=== PATIENT | female | born 1940 | race Caucasian/White ===

== ENCOUNTER 2018-05-19 22:35 | Inpatient (IN) | payer MEDICARE, BC ==
[2018-05-19] MEDS ORDERED: NS 0.9% 1000 ML** 1,000 ML IV ONE (22:44)
[2018-05-19] MEDS ORDERED: Pantoprazole IV* 40 MG IV ONE (22:45)
--- NOTE | 2018-05-19 22:49 | ED ---
GI/ HPI - HPI Summary HPI Summary: Pt is a 78 y/o F presenting to the ED brought in by EMS transferred from [facility] for melena. She is a resident of [facility]. The pt presently has no specific complaints, and denies dizziness or seeing any dark stool. - History of Current Complaint Chief Complaint: EDGIBleed Time Seen by Provider: 05/19/18 22:36 Stated Complaint: RECTAL BLEED Hx Obtained From: Patient Onset/Duration: Started Hours Ago, Still Present Timing: Constant Severity: Mild Current Severity: None Pain Intensity: 0 Location of Pain: None Associated Signs and Symptoms: Positive: Black Tarry Stool Aggravating Factor(s): Nothing Alleviating Factor(s): Nothing - Allergy/Home Medications Allergies/Adverse Reactions: Allergies Allergy/AdvReac Type Severity Reaction Status Date / Time pentazocine Allergy Unknown Verified 05/19/18 22:39 Reaction Details Home Medications: Home Medications Aspirin 81 mg PO DAILY 05/19/18 [History Confirmed 05/19/18] Citalopram Hydrobromide 20 mg PO DAILY 05/19/18 [History Confirmed 05/19/18] Donepezil HCl 10 mg PO DAILY 05/19/18 [History Confirmed 05/19/18] Glucophage Xr 750 mg PO DAILY 05/19/18 [History Confirmed 05/19/18] Levothyroxine Sodium 100 mg PO DAILY 05/19/18 [History Confirmed 05/19/18] Lisinopril 5 mg PO DAILY 05/19/18 [History Confirmed 05/19/18] Rosuvastatin Calcium 20 mg PO DAILY 05/19/18 [History Confirmed 05/19/18] Tradjenta (NF) 5 mg PO DAILY 05/19/18 [History Confirmed 05/19/18] Vitamin D TAB* 2,000 i.u. PO DAILY 05/19/18 [History Confirmed 05/19/18] PMH/Surg Hx/FS Hx/Imm Hx Previously Healthy: Yes Endocrine/Hematology History: Reports: Hx Diabetes Cardiovascular History: Denies: Hx Hypertension Infectious Disease History: No Infectious Disease History: Denies: Traveled Outside the [place] in Last 30 Days - Family History Known Family History: Positive: Diabetes - thinks mother may have had diabetes, is unsure Negative: Hypertension - Social History Lives: Assisted Living Alcohol Use: None Smoking Status (MU): Never Smoked Tobacco Review of Systems Negative: Fever Positive: Other - melena Neurological: Negative - dizziness All Other Systems Reviewed And Are Negative: Yes Physical Exam - Summary Physical Exam Summary: VITAL SIGNS: Reviewed. GENERAL: Patient is a morbidly obese and pale female who is lying comfortable in the stretcher. Patient is not in any acute respiratory distress. HEAD AND FACE: No signs of trauma. No ecchymosis, hematomas or skull depressions. No sinus tenderness. EYES: PERRLA, EOMI x 2, No injected conjunctiva, no nystagmus. EARS: Hearing grossly intact. Ear canals and tympanic membranes are within normal limits. MOUTH: Oropharynx within normal limits. NECK: Supple, trachea is midline, no adenopathy, no JVD, no carotid bruit, no c- spine tenderness, neck with full ROM. CHEST: Symmetric, no tenderness at palpation LUNGS: Clear to auscultation bilaterally. No wheezing or crackles. CVS: Regular rate and rhythm, S1 and S2 present, no murmurs or gallops appreciated. ABDOMEN: Soft, non-tender. No signs of distention. No rebound no guarding, and no masses palpated. Bowel sounds are normal. EXTREMITIES: FROM in all major joints, no edema, no cyanosis or clubbing. NEURO: Alert and oriented x 3. No acute neurological deficits. Speech is normal and follows commands. SKIN: Dry and warm Triage Information Reviewed: Yes Vital Signs On Initial Exam: Initial Vitals Temp Pulse Resp BP Pulse Ox 97.9 F 97 16 98/63 99 05/19/18 22:39 05/19/18 22:39 05/19/18 22:39 05/19/18 22:39 05/19/18 22:39 Vital Signs Reviewed: Yes Diagnostics - Vital Signs Vital Signs Temp Pulse Resp BP Pulse Ox 05/19/18 22:39 97.9 F 97 16 98/63 99 - Laboratory Result Diagrams: 05/20/18 05:15 05/20/18 05:15 Lab Statement: Any lab studies that have been ordered have been reviewed, and results considered in the medical decision making process. - EKG 2249 Cardiac Rate: NL - 98bpm EKG Rhythm: Sinus Rhythm ST Segment: Non-Specific - in inferior leads Ectopy: None Summary of EKG Findings: Q-waves in inferior leads. Nonspecific ST changes in inferior leads. GIGU Course/Dx - Course Course Of Treatment: Pt is a 78 y/o F presenting to the ED brought in by EMS transferred from [facility] for melena. She presently has no specific complaints. The pt will be admitted for an upper GI bleed to Dr. Chan. - Diagnoses Provider Diagnoses: Upper GI bleed Discharge - Sign-Out/Discharge Documenting (check all that apply): Patient Departure Patient Received Moderate/Deep Sedation with Procedure: No - Discharge Plan Condition: Stable Disposition: ADMITTED TO [facility] - Billing Disposition and Condition Condition: STABLE Disposition: Admitted to [facility] - Attestation Statements Document Initiated by Irisibe: Yes Documenting Scribe: Amy Cruz Provider For Whom Pradip is Documenting (Include Credential): Elmo Morgan MD. Scribe Attestation: Amy Bowers, onesimoed for Elmo Morgan MD. on 05/20/18 at 0609. Scribe Documentation Reviewed: Yes Provider Attestation: The documentation as recorded by the Amy young accurately reflects the service I personally performed and the decisions made by Vane rodriguez MD. Status of Scribe Document: Viewed Consult Consult: [id number] - Spoke with Dr. Chan who will be the accepting physician to [facility] [facility].
[2018-05-19 23:07] LABS: ABS Basophils 0.1 10^3/ul (0-0.2); ABS Eosinophils 0 10^3/ul (0-0.6); ABS Lymphocytes 2.1 10^3/ul (1.0-4.8); ABS Monocytes 0.5 10^3/ul (0-0.8); ABS Neutrophils 9.8 10^3/ul (1.5-7.7); ABS Nucleated RBC 0 10^3/ul; Eosinophil % 0.3 %; Hematocrit 29 % (35-47); Lymphocyte % 16.4 %; Mean Corpuscular HGB Conc 34 g/dl (31-36); Mean Corpuscular Hemoglobin 31 pg (27-31); Mean Corpuscular Volume 90 fL (80-97); Mean Platelet Volume 7.4 fL (7.4-10.4); Nucleated Red Blood Cells % 0; Platelet Count 242 10^3/ul (150-450); Red Blood Count 3.28 10^6/ul (4.00-5.40); Red Cell Distribution Width 15 % (10.5-15); White Blood Count 12.6 10^3/ul (3.5-10.8)
[2018-05-19] MEDS: Pantoprazole* 80 mg IN NS 80 MG/250 ML BAG IVPB SCH (23:11)
[2018-05-19 23:16] LABS: Activated Partial Thrombo Time 23.8 seconds (26.0-36.3); INR 0.94 (0.77-1.02)
[2018-05-19 23:27] LABS: Albumin/Globulin Ratio 1.7 (1-3); BUN/Creatinine Ratio 33.7 (8-20); Calcium 9.5 mg/dL (8.6-10.3); EGFR African American 80.4 (>60); EGFR Non-African American 66.5 (>60); Globulin 2.3 g/dL (2-4); Potassium 4.9 mmol/L (3.5-5.0); Total Bilirubin 0.3 mg/dL (0.2-1.0); Total Protein 6.3 g/dL (6.4-8.9)
[2018-05-20] MEDS ORDERED: NS 0.9% 1000 ML** 1,000 ML IV ONE (00:41)
[2018-05-20 03:06] LABS: Hematocrit 26 % (35-47); Hemoglobin 8.4 g/dl (12.0-16.0)
[2018-05-20] MEDS: NS 0.9% 1000 ML** 1,000 ML IV SCH ×3 (03:13→22:33)
--- NOTE | 2018-05-20 03:18 | ADMNOTE ---
Subjective Date of Service: 05/20/18 Interval History: HISTORY AND PHYSICAL PCP: Andrew Braxton CC: GI bleed HPI: Patient is 78 year old resident of [facility], was brought to [place] ER earlier in day for abdominal pain. She had a CT of the abdomen/pelvis w/ no significant findings, and was returned to her SNF. Later in day, evening of admission, returned to ER w/ melena, maroon stools. Hematocrit was 31%, and FOBT was postitive. Provider in [place] ER contacted Dr. Mckenna, he accepted patient in transfer, for GI consult. Patient was transferred ER to ER. Patient has no memory of abdominal pain, denies pain, melena now. She has dementia and cannot give history. Family History: Findings - Father; alcoholic, Mother; unknown Social History: Findings - Homemaker, , 3 children, daughter Ya at [phone] is HCP, non-smoker, no alcohol or drug use Past Medical History: Findings - PMH: OA, h/o DVT, h/o [place] Fever , hypothyroid, lumbar spondylosis, depression, h/o rhabdomyolysis, DM2, HTN, dementia; PSH: intussuception, RT TKR, Review of Systems - Measurements Intake and Output: Intake and Output Last 24 Hours 05/17/18 05/18/18 05/19/18 05/20/18 06:59 06:59 06:59 06:59 Intake Total 1999 Balance 1999 Weight 99.79 kg Intake: IV Fluids 1999 - Review of Systems General Comments: poor historian, denies all problems, cannot meaningfully complete ROS Objective Active Medications: Home Medications See medication reconciliation sheet Vital Signs - 8 hr 05/19/18 05/19/18 05/19/18 22:38 22:39 22:41 Temperature 36.6 C Pulse Rate 95 97 97 Respiratory 13 16 15 Rate Blood Pressure 98/63 98/63 (mmHg) O2 Sat by Pulse 99 99 99 Oximetry 05/20/18 05/20/18 05/20/18 01:00 01:07 01:22 Temperature Pulse Rate 91 91 86 Respiratory 16 12 7 Rate Blood Pressure 82/55 91/56 102/56 (mmHg) O2 Sat by Pulse 95 93 92 Oximetry 05/20/18 05/20/18 02:00 02:15 Temperature 36.9 C Pulse Rate 95 92 Respiratory 16 17 Rate Blood Pressure 96/54 (mmHg) O2 Sat by Pulse 98 98 Oximetry Oxygen Devices in Use Now: None Appearance: alert, no distress Eyes: No Scleral Icterus, - - conjunctival pallor Ears/Nose/Mouth/Throat: Clear Oropharnyx Neck: NL Appearance and Movements; NL JVP Respiratory: Symmetrical Chest Expansion and Respiratory Effort, Clear to Auscultation Cardiovascular: NL Sounds; No Murmurs; No JVD Abdominal: NL Sounds; No Tenderness; No Distention Lymphatic: No Cervical Adenopathy Extremities: No Edema Skin: No Rash or Ulcers Neurological: Alert and Oriented x 3 Lines/Tubes/Other Access: Clean, Dry and Intact Peripheral IV Nutrition: - - NPO Result Diagrams: 05/20/18 05:15 05/20/18 05:15 Additional Lab and Data: Laboratory Tests 05/19/18 05/19/18 05/19/18 22:59 22:59 22:59 WBC 12.6 H RBC 3.28 L Hgb 10.0 L Hct 29 L Plt Count 242 INR (Anticoag Therapy) 0.94 APTT 23.8 L Calcium 9.5 AST 12 L ALT 9 Alkaline Phosphatase 31 L Total Protein 6.3 L Albumin 4.0 05/20/18 02:59 WBC RBC Hgb 8.4 L Hct 26 L Plt Count INR (Anticoag Therapy) APTT Calcium AST ALT Alkaline Phosphatase Total Protein Albumin Diagnostic Imaging: Abdo/Pelvis CT at [place] negative EKG Data: NSR, inferior Q waves, III, aVF, possible old IMI Assess/Plan/Problems-Billing Assessment: 78 year old woman with dementia, and GI hemorrhage, likely upper GI tract - Patient Problems (1) GI hemorrhage Current Visit: Yes Status: Acute Priority: High Code(s): K92.2 - GASTROINTESTINAL HEMORRHAGE, UNSPECIFIED SNOMED Code(s): 35333148 Comment: -differential includes gastritis, ulcer, small bowel AVM, diverticular bleed, ischemic colitis -BP running low, will give fluids to correct volume status -Follow serial H/H, may need transfusion -IV protonix initiated in ER -Dr. Mckenna to consult today. (2) Hypertension Current Visit: Yes Status: Acute Priority: Medium Code(s): I10 - ESSENTIAL (PRIMARY) HYPERTENSION SNOMED Code(s): 95293060 Comment: -BP running low due to hypovolemia -will hold all oral medications and monitor (3) Type 2 diabetes mellitus Current Visit: Yes Status: Acute Priority: Medium Comment: -holding all diabetic medications while TRANSFORMER [employer]STER) -will follow finger-stick glucose (4) DNR (do not resuscitate) Current Visit: Yes Status: Acute Priority: Medium Comment: -DNR status updated in chart from [facility]OL[facility] form (5) DVT prophylaxis Current Visit: Yes Status: Acute Priority: Low Code(s): VPB6274 - SNOMED Code(s): 982171736 Comment: -SCDs Status and Disposition: Inpatient
[2018-05-20 05:29] LABS: Hematocrit 24 % (35-47); Hemoglobin 7.9 g/dl (12.0-16.0)
[2018-05-20 05:45] LABS: BUN/Creatinine Ratio 30.1 (8-20); Calcium 8.3 mg/dL (8.6-10.3); EGFR African American 93.3 (>60); EGFR Non-African American 77.1 (>60); Potassium 4.1 mmol/L (3.5-5.0)
[2018-05-20] MEDS ORDERED: Dextrose 50% Syringe 50 ML* 25 GM/50 ML SYRINGE IV PUSH PRN (09:16)
--- NOTE | 2018-05-20 09:34 | PN ---
Subjective Date of Service: 05/20/18 Interval History: Patient is feeling well. Patient is a poor historian. Patient denies any pain or dizziness on standing. Patient denies F/C, N/V, abdominal pain, patient does not remember having any bloody bowel movements. Patient denies CP, SOB. Patient denies any recent sick contacts or changes in her medications. Family History: Findings - Father; alcoholic, Mother; unknown Social History: Findings - Homemaker, , 3 children, daughter Ya at [phone] is HCP, non-smoker, no alcohol or drug use Past Medical History: Findings - PMH: OA, h/o DVT, h/o [facility] Fever , hypothyroid, lumbar spondylosis, depression, h/o rhabdomyolysis, DM2, HTN, dementia; PSH: intussuception, RT TKR, Objective Active Medications: Dextrose (D50w Syringe 50 Ml*) 12.5 gm IV PUSH .FOR FS < 60 - SS PRN PRN Reason: FS < 60 Pantoprazole Sodium (Protonix Iv Bag*) 80 mg in 250 mls @ 25 mls/hr IVPB Q10H [facility] Last Admin: 05/19/18 23:11 Dose: 25 mls/hr Sodium Chloride (Ns 0.9% 1000 Ml) 1,000 mls @ 125 mls/hr IV PER RATE [facility] Last Admin: 05/20/18 03:13 Dose: 125 mls/hr Insulin Human Lispro (Humalog*) 0 units SUBCUT Q6HR [facility]; Protocol Vital Signs - 8 hr 05/20/18 05/20/18 05/20/18 01:37 01:53 01:58 Temperature Pulse Rate 90 95 94 Respiratory 29 23 20 Rate Blood Pressure 96/52 104/49 (mmHg) O2 Sat by Pulse 93 98 98 Oximetry 05/20/18 05/20/18 05/20/18 02:00 02:15 02:40 Temperature 98.5 F 98.4 F Pulse Rate 95 92 93 Respiratory 16 17 18 Rate Blood Pressure 96/54 119/52 (mmHg) O2 Sat by Pulse 98 98 100 Oximetry 05/20/18 05/20/18 07:27 07:55 Temperature 97.8 F Pulse Rate 84 Respiratory 16 Rate Blood Pressure 110/48 (mmHg) O2 Sat by Pulse 97 Oximetry Oxygen Devices in Use Now: None Appearance: Patient is a 78yo female who appears stated age and is sitting in the chair in NAD. Eyes: No Scleral Icterus, PERRLA Ears/Nose/Mouth/Throat: NL Teeth, Lips, Gums, Clear Oropharnyx, Mucous Membranes Moist, - - Pale Mucus Membranes. Neck: NL Appearance and Movements; NL JVP, Trachea Midline Respiratory: Symmetrical Chest Expansion and Respiratory Effort, Clear to Auscultation Cardiovascular: NL Sounds; No Murmurs; No JVD, No Edema, - - Tachycardia. Abdominal: NL Sounds; No Tenderness; No Distention, No Hepatosplenomegaly Lymphatic: No Cervical Adenopathy Extremities: No Edema, No Clubbing, Cyanosis Skin: No Rash or Ulcers, No Nodules or Sclerosis Neurological: Alert and Oriented x 3, NL Sensation, NL Muscle Strength and Tone , - - CN II-XII intact. Result Diagrams: 05/20/18 05:15 05/20/18 05:15 Additional Lab and Data: Laboratory Tests Microbiology and Other Data: Microbiology 05/20/18 04:20 Nasal Screen MRSA (PCR) - Final Nasal Mrsa Not Detected Diagnostic Imaging: Abdo/Pelvis CT at [place] negative EKG Data: NSR, inferior Q waves, III, aVF, possible old IMI Assess/Plan/Problems-Billing Assessment: 78 year old woman with a PMH for dementia, HF, History of DVT, who presents with melena and anemia likely from an upper GI bleed. - Patient Problems (1) GI hemorrhage Current Visit: Yes Status: Acute Priority: High Code(s): K92.2 - GASTROINTESTINAL HEMORRHAGE, UNSPECIFIED SNOMED Code(s): 57850874 Comment: - Likely upper GI. - BP now normotensive, non-symptomatic. Continue to monitor closely. - Follow serial H/H, may need transfusion, repeat due at 1100 - Continue IV protonix - GI to consult, NPO for possible EGD. (2) Heart failure Current Visit: Yes Status: Acute Code(s): I50.9 - HEART FAILURE, UNSPECIFIED SNOMED Code(s): 79964702 Comment: - Unknown type, appears euvolemic. - Monitor respiratory status with fluids and possible transfusions. (3) Dementia Current Visit: Yes Status: Acute Code(s): F03.90 - UNSPECIFIED DEMENTIA WITHOUT BEHAVIORAL DISTURBANCE SNOMED Code(s): 95941059 Comment: - Supportive care (4) Hypertension Current Visit: Yes Status: Acute Priority: Medium Code(s): I10 - ESSENTIAL (PRIMARY) HYPERTENSION SNOMED Code(s): 36992760 Comment: - BP Normotensive - Continue to hold oral antihypertensives (5) Type 2 diabetes mellitus Current Visit: Yes Status: Acute Priority: Medium Comment: - Holding all diabetic medications while NPO - FSBG Q6H while NPO - Low dose SSI (6) DNR (do not resuscitate) Current Visit: Yes Status: Acute Priority: Medium Comment: -DNR status updated in chart from [facility] form (7) DVT prophylaxis Current Visit: Yes Status: Acute Priority: Low Code(s): MHS3441 - SNOMED Code(s): 323728500 Comment: -SCDs setting in setting of GI bleed. - History of DVT, unknown if provoked. Status and Disposition: Inpatient, Clinical Course to determine discharge.
[2018-05-20] MEDS: Pantoprazole* 80 mg IN NS 80 MG/250 ML BAG IVPB SCH ×2 (10:41→19:30)
[2018-05-20 11:19] LABS: Hematocrit 24 % (35-47); Hemoglobin 7.8 g/dl (12.0-16.0)
[2018-05-20] MEDS: Insulin LISPRO* 1 UNITS UNIT SUBCUT SCH ×2 (12:17→18:18)
--- NOTE | 2018-05-20 14:33 | PN ---
Hospitalist Progress Note Date of Service: 05/20/18 Updated with patient and daughter. Patient has persistent facial droop, unchanged from previously. Discussed with patient's daughter who discussed with her brother who lives with patient and states that this is a chronic, unchanged issue for patient. No further workup warranted.
[2018-05-20 18:06] LABS: Hematocrit 24 % (35-47); Hemoglobin 7.9 g/dl (12.0-16.0)
[2018-05-20] MEDS ORDERED: PEG 3000 GI LAVAGE* 1 GALLON PO ONE (18:30)
--- NOTE | 2018-05-20 20:39 | CONS ---
GASTROENTEROLOGY CONSULT: DATE OF CONSULT: 05/20/18 REQUESTING PROVIDER: JAZMINE House REASON FOR CONSULT: Rectal bleeding. HISTORY OF PRESENT ILLNESS: Ms. Charles is a 78-year-old woman with a history of dementia, diabetes, hypothyroidism, hypertension, and hyperlipidemia, who is transferred from [facility] for workup of GI bleeding. Ms. Charles is pleasantly confused. She is unable to provide her medical history or details on the presenting symptom of GI bleeding. I called and spoke with her daughter, who is unable to provide much additional history either. According to the H&P, Ms. Charles was noted to have some dark stool. There is mention of melena in the admitting note. Labs on arrival were notable for white count of 12.6, hemoglobin of 10, hematocrit of 29. Her INR was normal. Comprehensive panel notable for mildly elevated BUN of 28. Subsequent labs overnight and today have demonstrated a hemoglobin that dropped to 8.4 and then has been stable at 7.9. She was noted by nursing to have 2 small amounts of dark red to bright red colored rectal output throughout the day. No melena noted. On interview, Ms. Charles states that she feels well. She denies any upper GI symptoms including heartburn, nausea, vomiting, dysphagia, or abdominal pain. She is not aware of having any rectal bleeding as she has not seen any herself. She does not think that she has had bleeding before. She takes NSAIDs only occasionally when she has pain or a headache. She denies being on a blood thinner. She does not know if she has had a colonoscopy in the past. On my later discussion with Ms. Charles's daughter, Ya also does not know if the patient has had a colonoscopy. She remembers the patient having some surgery with possible intestinal resection at some point while at [facility], although she does not remember any further details or the timing of the surgery. PAST MEDICAL HISTORY: The patient is a poor historian. Chart lists a history of: hypothyroidism, diabetes, hypertension, osteoarthritis, history of DVT, lumbar spondylosis, depression, and dementia. PAST SURGICAL HISTORY: Chart notes right knee replacement, , and intussusception. MEDICATIONS: At home, the patient has been on: 1. Aspirin 81 daily. 2. Citalopram 20 mg daily. 3. Donepezil 10 mg daily. 4. Glucophage XR 750 daily. 5. Levothyroxine 100 mcg daily. 6. Lisinopril 5 mg daily. 7. Rosuvastatin 20 mg daily. 8. Tradjenta 5 mg daily. 9. Vitamin D 2000 units daily. FAMILY HISTORY: No known GI or liver disease in the family. SOCIAL HISTORY: Daughter, Ya, is healthcare proxy. The patient has 3 children. Nonsmoker, no alcohol use or drug use. Resides at [facility]. REVIEW OF SYSTEMS: A 14-point of review of systems is negative except for the above. PHYSICAL EXAM: Vital Signs: Afebrile, heart rate 87, blood pressure 112/56, 97% on room air. General: Pleasant, obese woman, no acute distress. Confused. Knows it is May or May. Does not know year, where she is currently or where she lives. HEENT: Mucous membranes moist. Anicteric sclerae. Cardiovascular: Regular rate and rhythm. Pulm: Breathing comfortably. Abdomen: Obese, soft, nontender, nondistended. Rectal Exam: Limited as the patient had a hard time getting into position despite two person assistance. Unable to directly visualize entire perianal and anal areas. Digital rectal exam was notable for gross red blood. No melena. No large hemorrhoids noted within the limitations of the exam. Extremities: The patient is wearing SCDs. Skin: Pale, not jaundiced. DIAGNOSTIC STUDIES/LAB DATA: Labs reviewed. White count 12.6 on admission. Hemoglobin at 10, now has plateaued at 7.9. INR has been normal. Comprehensive panel notable initially for a mildly elevated BUN of 28, which is now down to 22. Imaging: According to the chart, the patient had a CT abdomen and pelvis performed at [place], which was negative. Report not available for review at time of dictation. IMPRESSION AND PLAN: Ms. Charles is a 78-year-old woman with a history of diabetes, dementia, hypothyroidism, hypertension, and hyperlipidemia, who was transferred from [facility] for work-up of rectal bleeding. The patient is a poor historian. There is some mention of melena in the chart; however, the patient is currently having bright red to dark red bleeding noted by the staff today and on my rectal exam. This bloody output in the setting of now stable blood count and hemodynamic stability argue against a brisk upper bleed. I would favor a lower gastrointestinal bleed as the source of her hematochezia and anemia. Differential for lower gastrointestinal bleeding in this patient most commonly would include diverticular bleeding, arteriovenous malformation, ischemic colitis. Mass or large polyp also considered as it is not clear she has had a colonoscopy, although a colonic neoplasm tends not to present with acute-onset bleeding of this severity. The patient's daughter reports a history of an unknown intestinal surgery, and there is a mention of intussusception in the chart. Unclear if this prior surgery could be playing a role in her current bleeding presentation (?anastomotic ulcer/bleed), although I suspect this is less likely. Hemorrhoids would not be expected to cause bleeding so significant that significant anemia develops. 1. Continue to monitor CBC every 6 to 8 hours. 2. I would recommend the patient be given 2 L of GoLYTELY prep to attempt to purge the colon of any residual blood in order to help determine if the patient is having ongoing bleeding or if the bloody output represents residual blood in the gastrointestinal tract. May could consider giving additional prep tomorrow if blood count drops or rectal bleeding in order to prep patient for colonoscopy. If the blood counts remain stable and/or blood clears with half of the colonoscopy prep, then I would recommend a discussion with the patient and her daughter about their wishes in terms of observation vs pursuing a colonoscopy. 3. No plan for EGD at this time as patient does not appear to be having melena or signs of a brisk upper GI bleed. 3. I will request that the primary team try to obtain outside records from [place] regarding any prior colonoscopy, upper endoscopy, and her prior abdominal surgery. 4. Clear diet with prep ok from GI standpoint. Thank you very much for this consult. GI will continue to follow. [id number]/[facility] #: [id number] KAMLESH
[2018-05-21 01:02] LABS: Hematocrit 24 % (35-47)
[2018-05-21] MEDS: Insulin LISPRO* 1 UNITS UNIT SUBCUT SCH ×5 (01:11→20:41)
[2018-05-21] MEDS: Acetaminophen TAB* 325 MG PO PRN (01:45)
[2018-05-21] MEDS: Levothyroxine TAB* 100 MCG TAB PO SCH (05:49)
[2018-05-21] MEDS: NS 0.9% 1000 ML** 1,000 ML IV SCH (06:28)
[2018-05-21] MEDS: Citalopram TAB* 20 MG PO SCH (08:44)
[2018-05-21] MEDS: Atorvastatin* 40 MG TAB PO SCH (08:44)
[2018-05-21] MEDS: Pantoprazole* 80 mg IN NS 80 MG/250 ML BAG IVPB SCH ×3 (09:36→21:34)
[2018-05-21 09:44] LABS: ABS Basophils 0 10^3/ul (0-0.2); ABS Eosinophils 0.2 10^3/ul (0-0.6); ABS Lymphocytes 1.7 10^3/ul (1.0-4.8); ABS Monocytes 0.4 10^3/ul (0-0.8); ABS Neutrophils 3.9 10^3/ul (1.5-7.7); ABS Nucleated RBC 0 10^3/ul; Eosinophil % 2.8 %; Hematocrit 24 % (35-47); Hemoglobin 7.8 g/dl (12.0-16.0); Lymphocyte % 26.9 %; Mean Corpuscular HGB Conc 33 g/dl (31-36); Mean Corpuscular Hemoglobin 29 pg (27-31); Mean Corpuscular Volume 91 fL (80-97); Mean Platelet Volume 7.1 fL (7.4-10.4); Nucleated Red Blood Cells % 0.1; Platelet Count 188 10^3/ul (150-450); Red Blood Count 2.63 10^6/ul (4.00-5.40); Red Cell Distribution Width 15 % (10.5-15); White Blood Count 6.2 10^3/ul (3.5-10.8)
[2018-05-21 10:02] LABS: Calcium 8.6 mg/dL (8.6-10.3); EGFR African American 90.4 (>60); EGFR Non-African American 74.7 (>60); Potassium 3.6 mmol/L (3.5-5.0)
[2018-05-21] MEDS ORDERED: fentaNYL* 50 MCG/ML 2 ML VIAL (100 MCG VIAL) ONE (14:24)
[2018-05-21] MEDS ORDERED: Midazolam* 1 MG/ML 10 ML VIAL (10 MG) ONE (14:24)
--- NOTE | 2018-05-21 15:55 | PN ---
Progress Note - Progress Note Date of Service: 05/21/18 Note: GI Brief Note EGD: No fresh or old blood to distal duodenum. Colon with Ileoscopy: Fresh and old blood throughout colon, fresher at IC valve. Cleaned extensively, NO colonic source identified. Fresh blood oozing out of TI. Intubated x15cm still with fresh blood. Recommendations: Endoscopically not reachable here. Monitor H/H q 6 hours. Keep 2 units of PRBC on hold at all times. Would monitor in ICU closely for signs of decompensation. Current hemodynamics reasonable If ongoing loss, would transfer for consideration of balloon enteroscopy (SYR/ EBENEZER) Discussed with DTR, she states she would want her mom to have surg/invasive procedures if needed in acute phase, does not wish core drier ventilation. Discussed with hospitalist and warehouse production worker. Eric Bragg DO 05/21/18 1600
--- NOTE | 2018-05-21 16:05 | PN ---
Subjective Date of Service: 05/21/18 Interval History: Patient is feeling well. Patient continued to have bloody bowel movements with her bowel prep. Patient remained hemodynamically stable. Patient denies dizziness on standing. Patient denies F/C, CP, SOB, N/V, abdominal pain, presyncope, or other pain. Patient in endoscopy had active bleeding from small bowel. Discussed with Family and they would like transfer for enteroscopy if needed and even surgery if needed. Family History: Findings - Father; alcoholic, Mother; unknown Social History: Findings - Homemaker, , 3 children, daughter Ya at [phone] is HCP, non-smoker, no alcohol or drug use Past Medical History: Findings - PMH: OA, h/o DVT, [facility] , hypothyroid, lumbar spondylosis, depression, h/o rhabdomyolysis, DM2, HTN, dementia; PSH: intussuception, RT TKR, Objective Active Medications: Acetaminophen (Tylenol Tab*) 650 mg PO Q6H PRN PRN Reason: PAIN Last Admin: 05/21/18 01:45 Dose: 650 mg Atorvastatin Calcium (Lipitor*) 40 mg PO DAILY [facility] Last Admin: 05/21/18 08:44 Dose: 40 mg Citalopram Hydrobromide (Celexa Tab*) 20 mg PO DAILY [facility] Last Admin: 05/21/18 08:44 Dose: 20 mg Dextrose (D50w Syringe 50 Ml*) 12.5 gm IV PUSH .FOR FS < 60 - SS PRN PRN Reason: FS < 60 Pantoprazole Sodium (Protonix Iv Bag*) 80 mg in 250 mls @ 25 mls/hr IVPB Q10H [facility] Last Admin: 05/21/18 09:36 Dose: 25 mls/hr Insulin Human Lispro (Humalog*) 0 units SUBCUT ACHS [facility]; Protocol Last Admin: 05/21/18 11:19 Dose: Not Given Levothyroxine Sodium (Synthroid Tab*) 100 mcg PO DAILY@0600 [facility] Last Admin: 05/21/18 05:49 Dose: 100 mcg Vital Signs - 8 hr 05/21/18 11:35 Temperature 97.5 F Pulse Rate 81 Respiratory 16 Rate Blood Pressure 145/48 (mmHg) O2 Sat by Pulse 99 Oximetry Oxygen Devices in Use Now: None Appearance: Patient is a 78yo female who appears stated age and is sitting in the bed in NAD. Eyes: No Scleral Icterus, PERRLA Ears/Nose/Mouth/Throat: NL Teeth, Lips, Gums, Clear Oropharnyx, Mucous Membranes Moist, - - Pale Oral Mucosa Neck: NL Appearance and Movements; NL JVP, Trachea Midline Respiratory: Symmetrical Chest Expansion and Respiratory Effort, Clear to Auscultation Cardiovascular: NL Sounds; No Murmurs; No JVD, RRR, No Edema Abdominal: NL Sounds; No Tenderness; No Distention, No Hepatosplenomegaly Lymphatic: No Cervical Adenopathy Extremities: No Edema, No Clubbing, Cyanosis Skin: No Rash or Ulcers, No Nodules or Sclerosis Neurological: NL Sensation, NL Muscle Strength and Tone, - - CN II-XII intact. Oriented only to self. Result Diagrams: 05/21/18 09:30 05/21/18 09:30 Additional Lab and Data: Laboratory Tests Microbiology and Other Data: Microbiology 05/20/18 04:20 Nasal Screen MRSA (PCR) - Final Nasal Mrsa Not Detected Diagnostic Imaging: Abdo/Pelvis CT at [place] negative EKG Data: NSR, inferior Q waves, III, aVF, possible old IMI Assess/Plan/Problems-Billing Assessment: 78 year old woman with a PMH for dementia, HF, History of DVT, who presents with melena and anemia likely from an upper GI bleed. - Patient Problems (1) GI hemorrhage Current Visit: Yes Status: Acute Priority: High Code(s): K92.2 - GASTROINTESTINAL HEMORRHAGE, UNSPECIFIED SNOMED Code(s): 58419960 Comment: - EGD and Colonoscopy negative with active bleeding. Likeyl small bowel source. - BP now normotensive, non-symptomatic. Continue to monitor closely in ICU, may need to be transferred for enteroscopy if H/H deteriorates. - Follow serial H/H Q6H - Continue IV protonix - Appreciate GI consult. (2) Heart failure Current Visit: Yes Status: Acute Code(s): I50.9 - HEART FAILURE, UNSPECIFIED SNOMED Code(s): 39604387 Comment: - Unknown type, appears slightly volume overloaded - Monitor respiratory status with fluids and possible transfusions. - Judicious use of fluids. (3) Dementia Current Visit: Yes Status: Acute Code(s): F03.90 - UNSPECIFIED DEMENTIA WITHOUT BEHAVIORAL DISTURBANCE SNOMED Code(s): 87415334 Comment: - Supportive care (4) Hypertension Current Visit: Yes Status: Acute Priority: Medium Code(s): I10 - ESSENTIAL (PRIMARY) HYPERTENSION SNOMED Code(s): 88188857 Comment: - BP Normotensive - Continue to hold oral antihypertensives (5) Type 2 diabetes mellitus Current Visit: Yes Status: Acute Priority: Medium Comment: - FSBG ACHS - Low dose SSI - Hold Oral Antihyperglycemics. (6) DNR (do not resuscitate) Current Visit: Yes Status: Acute Priority: Medium Comment: -DNR status updated in chart from MOLST form (7) DVT prophylaxis Current Visit: Yes Status: Acute Priority: Low Code(s): THC8704 - SNOMED Code(s): 230353626 Comment: -SCDs setting in setting of GI bleed. - History of DVT, unknown if provoked. Status and Disposition: Inpatient, Clinical Course to determine discharge. Possible need for transfer.
[2018-05-21 16:16] LABS: Hematocrit 23 % (35-47); Hemoglobin 7.7 g/dl (12.0-16.0)
--- NOTE | 2018-05-21 21:00 | PRO ---
CC: Dr. Amaury Chan; Dr. Andrew Braxton * ESOPHAGOGASTRODUODENOSCOPY AND COLONOSCOPY WITH ILEOSCOPY REPORT: DATE OF PROCEDURE: 05/21/18 - ROOM #434 PRIMARY CARE PHYSICIAN: Dr. Andrew Braxton. INDICATION FOR PROCEDURE: Acute blood loss anemia. PROCEDURE PERFORMED: Complete colonoscopy to the terminal ileum with ileoscopy x15 cm and complete esophagogastroduodenoscopy with biopsies. MEDICATIONS GIVEN: Include 8 mg IV midazolam, 50 mcg IV fentanyl. DESCRIPTION OF PROCEDURE: After the EGD and flexible sigmoidoscopy procedure were explained to the patient in detail and to the daughter, written informed consent was obtained from the daughter secondary to dementia. All questions were answered and IV medication was given. A bite-block was placed between the teeth. The adult Olympus gastroscope was inserted into the patient's oropharynx , into the tubular esophagus. The lower esophageal sphincter had minimal GE junction variability. No fresh or old blood. No evidence of a Shreya-Oates tear or active ulceration. The scope was advanced through the lower esophageal sphincter into the stomach. No fresh or old blood visualized on retroflexion, a small hiatal hernia, but no gross Zach erosions. The scope was advanced through the widely patent pylorus into the duodenal bulb, C-loop and distal duodenum. These were normal in appearance without any fresh or old blood or ulceration. The scope was then removed from the patient. She was given additional IV sedation medication and a rectal exam was performed. The rectal exam revealed fresh blood. The adult Olympus colonoscope was then inserted into the patient's rectum. Fresh blood and old blood was seen. The area was irrigated through the sigmoid colon. Fresh blood was visualized beyond this. The decision was made to convert to colonoscopy at this point under emergency __ ____ consent given the active bleeding. The scope was then continued through the remainder of the colon to the cecum. The cecum had extensive clots with fresh blood. This was extensively irrigated and suctioned. At the conclusion, no active bleeding was seen within the cecum or the ascending colon; however, active blood was seen refluxing through the terminal ileal valve. The TI valve was a little bit retrograde and difficult to intubate; however, with multiple position changes and nursing assistance, I was able to intubate the terminal ileum x15 cm. Fresh blood was visualized throughout and fresh blood was seen beyond where I could reach with the scope. The scope was then removed from the patient. She tolerated the procedure well. In addition, in the rectum, 2 polyps were visualized. These were not removed secondary to her active blood loss. The preparation was fair with good views obtained after washing. There was mild elias diverticulosis coli throughout the colon. IMPRESSION: 1. Complete esophagogastroduodenoscopy with biopsies. 2. No fresh or old blood seen on upper endoscopy exam. No etiology of anemia on upper endoscopy. 3. Complete colonoscopy to the terminal ileum with ileoscopy x15 cm. 4. Likely small bowel source of bleeding. 5. Mild diverticulosis coli throughout colon. 6. Two rectal polyps not removed secondary to after blood loss. RECOMMENDATIONS: At this point, it appears that the patient has a small bowel source of bleeding. I was able to intubate into the terminal ileum but fresh blood was still able to be visualized beyond that. Her hemodynamics are stable at this point without tachycardia or hypotension. Given the small bowel source of bleed, if feasible, I recommend ICU monitoring for the next 24 hours to monitor for early signs of decompensation given that I cannot reach this area with the scope. If there is evidence of ongoing blood loss and clinical deterioration, would recommend transfer for a possible small bowel enteroscopy retrograde or antegrade depending on expertise, balloon assistance versus surgical approach. We will monitor the H and H every 6 hours. Keep 2 units of PRBCs on hold. I did discuss the findings with the daughter who is the healthcare proxy. The daughter's name is Ya and she wishes for her mom to have potentially surgery or even consideration for invasive procedures; however, would not want long-term ventilation and long-term morbidity. I discussed the case with JAZMINE House the hospitalist and the health logging supervisor. [id number]/[facility] #: [id number] KAMLESH
[2018-05-21 21:15] LABS: Hematocrit 24 % (35-47); Hemoglobin 7.7 g/dl (12.0-16.0)
[2018-05-22] MEDS: Levothyroxine TAB* 100 MCG TAB PO SCH (05:57)
[2018-05-22 07:33] LABS: Calcium 8.5 mg/dL (8.6-10.3); Magnesium 1.6 mg/dL (1.9-2.7); Potassium 3.8 mmol/L (3.5-5.0)
[2018-05-22 07:39] LABS: BUN/Creatinine Ratio 9.3 (8-20); EGFR African American 90.4 (>60); EGFR Non-African American 74.7 (>60)
[2018-05-22] MEDS: Insulin LISPRO* 1 UNITS UNIT SUBCUT SCH ×4 (08:34→21:25)
[2018-05-22] MEDS: Atorvastatin* 40 MG TAB PO SCH (08:55)
[2018-05-22] MEDS: Citalopram TAB* 20 MG PO SCH (08:55)
[2018-05-22] MEDS: Pantoprazole* 80 mg IN NS 80 MG/250 ML BAG IVPB SCH ×3 (08:55→20:01)
[2018-05-22] MEDS ORDERED: Calcium Gluconate INJ* 1 GM in NS 0.9% 50 ML* 50 ML IVPB ONE (09:10)
[2018-05-22] MEDS ORDERED: Magnesium Sulf 4 GM/100 ML IV* 4,000 MG/100 ML BAG IVPB ONE (09:10)
[2018-05-22 10:40] LABS: ABS Basophils 0.1 10^3/ul (0-0.2); ABS Eosinophils 0.1 10^3/ul (0-0.6); ABS Lymphocytes 1.7 10^3/ul (1.0-4.8); ABS Monocytes 0.5 10^3/ul (0-0.8); ABS Neutrophils 7.6 10^3/ul (1.5-7.7); ABS Nucleated RBC 0 10^3/ul; Eosinophil % 0.7 %; Hematocrit 24 % (35-47); Hemoglobin 8.3 g/dl (12.0-16.0); Lymphocyte % 16.9 %; Mean Corpuscular HGB Conc 34 g/dl (31-36); Mean Corpuscular Hemoglobin 31 pg (27-31); Mean Corpuscular Volume 90 fL (80-97); Mean Platelet Volume 7.7 fL (7.4-10.4); Nucleated Red Blood Cells % 0.2; Platelet Count 224 10^3/ul (150-450); Red Cell Distribution Width 15 % (10.5-15); White Blood Count 9.9 10^3/ul (3.5-10.8)
--- NOTE | 2018-05-22 14:04 | PN ---
Subjective Date of Service: 05/22/18 Interval History: Pt seen and examined. Reported to still have bloody stools last night. D/W Mr. Jessica who mentioned pt also got transfused w/2 units PRBC. Meds and labs reviewed. CC: N/A ROS: Unable to obtain reliable 14-point ROS given pts poor memory/dementia PHYSICAL EXAM: GEN APPEARANCE: Awake, not in acute distress, oriented to person only HEENT: NC/AT, PERRLA, moist oral mucosa, (-) throat erythema NECK: Soft, supple, (-) cervical LAD, (-)JVD HEART: S1S2 WNL, RRR, No MRG CHEST: CTA, BL, GAE, No W/R/R ABD: Soft, ND/NT, NABS 4x Q EXT: No C/C/E SKIN: Warm to touch PSYCH: No active psychosis, hallucinations, depression, SI/HI Family History: Findings - Father; alcoholic, Mother; unknown Social History: Findings - Homemaker, , 3 children, daughter Ya at [phone] is HCP, non-smoker, no alcohol or drug use Past Medical History: Findings - PMH: OA, h/o DVT, h/o [facility] Fever , hypothyroid, lumbar spondylosis, depression, h/o rhabdomyolysis, DM2, HTN, dementia; PSH: intussuception, RT TKR, Objective Active Medications: Acetaminophen (Tylenol Tab*) 650 mg PO Q6H PRN PRN Reason: PAIN Last Admin: 05/21/18 01:45 Dose: 650 mg Atorvastatin Calcium (Lipitor*) 40 mg PO DAILY [facility] Last Admin: 05/22/18 08:55 Dose: 40 mg Citalopram Hydrobromide (Celexa Tab*) 20 mg PO DAILY [facility] Last Admin: 05/22/18 08:55 Dose: 20 mg Dextrose (D50w Syringe 50 Ml*) 12.5 gm IV PUSH .FOR FS < 60 - SS PRN PRN Reason: FS < 60 Pantoprazole Sodium (Protonix Iv Bag*) 80 mg in 250 mls @ 25 mls/hr IVPB Q10H [facility] Last Admin: 05/22/18 08:55 Dose: 25 mls/hr Insulin Human Lispro (Humalog*) 0 units SUBCUT ACHS [facility]; Protocol Last Admin: 05/22/18 11:42 Dose: 1 unit Levothyroxine Sodium (Synthroid Tab*) 100 mcg PO DAILY@0600 [facility] Last Admin: 05/22/18 05:57 Dose: 100 mcg Vital Signs - 8 hr 05/22/18 05/22/18 05/22/18 07:01 07:30 11:18 Temperature 97.4 F 98.4 F Pulse Rate 101 101 Respiratory 18 18 16 Rate Blood Pressure 122/53 106/55 (mmHg) O2 Sat by Pulse 98 100 Oximetry Oxygen Devices in Use Now: None Result Diagrams: 05/22/18 10:19 05/22/18 06:41 Additional Lab and Data: Laboratory Tests Microbiology and Other Data: Microbiology 05/20/18 04:20 Nasal Screen MRSA (PCR) - Final Nasal Mrsa Not Detected Diagnostic Imaging: Abdo/Pelvis CT at [place] negative EKG Data: NSR, inferior Q waves, III, aVF, possible old IMI Assess/Plan/Problems-Billing Assessment: 78 year old woman with a PMH for dementia, HF, History of DVT, who presents with melena and anemia likely from an upper GI bleed. - Patient Problems (1) GI bleed Current Visit: Yes Status: Acute Code(s): K92.2 - GASTROINTESTINAL HEMORRHAGE, UNSPECIFIED SNOMED Code(s): 75609039 Comment: -Pt has anti-D; in anticipation of obtaining compatible blood, will hold order for 2 more units, not to be given until repeat H&H and/or clinical suggestive of continuic bleed - EGD and Colonoscopy negative with active bleeding. Likeyl small bowel source. - BP now normotensive, non-symptomatic. Continue to monitor closely in ICU, may need to be transferred for enteroscopy if H/H deteriorates. - Follow serial H/H Q6H x2---repeat at 1900 - Continue IV protonix - Appreciate GI consult. (2) Heart failure Current Visit: Yes Status: Acute Code(s): I50.9 - HEART FAILURE, UNSPECIFIED SNOMED Code(s): 23132691 Comment: - Monitor respiratory status with fluids and possible transfusions. - Judicious use of fluids. (3) Dementia Current Visit: Yes Status: Acute Code(s): F03.90 - UNSPECIFIED DEMENTIA WITHOUT BEHAVIORAL DISTURBANCE SNOMED Code(s): 38708606 Comment: - Supportive care (4) Hypertension Current Visit: Yes Status: Acute Priority: Medium Code(s): I10 - ESSENTIAL (PRIMARY) HYPERTENSION SNOMED Code(s): 10196700 Comment: - BP Normotensive - Continue to hold oral antihypertensives (5) Type 2 diabetes mellitus Current Visit: Yes Status: Acute Priority: Medium Comment: -Well-controlled - FSBG ACHS - Low dose SSI - Hold Oral Antihyperglycemics. (6) DVT prophylaxis Current Visit: Yes Status: Acute Priority: Low Code(s): AJU4655 - SNOMED Code(s): 854260901 Comment: -SCDs setting in setting of GI bleed. - History of DVT, unknown if provoked. Status and Disposition: -Continue to observe tonight; consider possible transfer in AM if continues to bleed
[2018-05-22 14:36] LABS: Hematocrit 25 % (35-47); Hemoglobin 8.3 g/dl (12.0-16.0)
[2018-05-22 19:55] LABS: ABS Basophils 0.1 10^3/ul (0-0.2); ABS Eosinophils 0.1 10^3/ul (0-0.6); ABS Lymphocytes 2.2 10^3/ul (1.0-4.8); ABS Monocytes 0.5 10^3/ul (0-0.8); ABS Neutrophils 4.6 10^3/ul (1.5-7.7); ABS Nucleated RBC 0 10^3/ul; Eosinophil % 1.6 %; Hematocrit 22 % (35-47); Hemoglobin 7.4 g/dl (12.0-16.0); Lymphocyte % 29.9 %; Mean Corpuscular HGB Conc 34 g/dl (31-36); Mean Corpuscular Hemoglobin 31 pg (27-31); Mean Corpuscular Volume 91 fL (80-97); Mean Platelet Volume 7.1 fL (7.4-10.4); Nucleated Red Blood Cells % 0.1; Platelet Count 197 10^3/ul (150-450); Red Cell Distribution Width 15 % (10.5-15); White Blood Count 7.5 10^3/ul (3.5-10.8)
[2018-05-23 00:33] LABS: Hematocrit 22 % (35-47); Hemoglobin 7.5 g/dl (12.0-16.0)
[2018-05-23] MEDS: Levothyroxine TAB* 100 MCG TAB PO SCH (05:43)
[2018-05-23] MEDS: Pantoprazole* 80 mg IN NS 80 MG/250 ML BAG IVPB SCH ×2 (05:44→16:40)
[2018-05-23 06:20] LABS: ABS Basophils 0 10^3/ul (0-0.2); ABS Eosinophils 0.2 10^3/ul (0-0.6); ABS Monocytes 0.5 10^3/ul (0-0.8); ABS Neutrophils 4.1 10^3/ul (1.5-7.7); ABS Nucleated RBC 0 10^3/ul; Eosinophil % 2.3 %; Hematocrit 23 % (35-47); Hemoglobin 7.7 g/dl (12.0-16.0); Lymphocyte % 29.4 %; Mean Corpuscular HGB Conc 34 g/dl (31-36); Mean Corpuscular Hemoglobin 31 pg (27-31); Mean Corpuscular Volume 91 fL (80-97); Mean Platelet Volume 7.3 fL (7.4-10.4); Nucleated Red Blood Cells % 0.2; Platelet Count 209 10^3/ul (150-450); Red Blood Count 2.48 10^6/ul (4.00-5.40); Red Cell Distribution Width 15 % (10.5-15); White Blood Count 6.8 10^3/ul (3.5-10.8)
[2018-05-23 06:32] LABS: Albumin 3.5 g/dL (3.2-5.2); Albumin/Globulin Ratio 1.8 (1-3); BUN/Creatinine Ratio 8.4 (8-20); Calcium 8.3 mg/dL (8.6-10.3); EGFR African American 80.4 (>60); EGFR Non-African American 66.5 (>60); Globulin 1.9 g/dL (2-4); Magnesium 2.2 mg/dL (1.9-2.7); Phosphorus 2.9 mg/dL (2.5-5.0); Potassium 3.6 mmol/L (3.5-5.0); Total Bilirubin 0.3 mg/dL (0.2-1.0); Total Protein 5.4 g/dL (6.4-8.9)
[2018-05-23] MEDS: Insulin LISPRO* 1 UNITS UNIT SUBCUT SCH ×4 (07:44→20:47)
[2018-05-23] MEDS: Atorvastatin* 40 MG TAB PO SCH (09:18)
[2018-05-23] MEDS: Citalopram TAB* 20 MG PO SCH (09:18)
[2018-05-23] MEDS ORDERED: Furosemide IV* 10 MG/ML 2 ML VIAL (20 MG) IV ONE (11:55)
--- NOTE | 2018-05-23 17:04 | PN ---
Subjective Date of Service: 05/23/18 Interval History: Pt seen and examined. Meds and labs reviewed. CC: N/A ROS: Denied DUKE/dizziness, F/C, N/V, CP, SOB, increased cough, sputum production , abd pain, diarrhea, constipation, dysuria, myalgias, arthralgias, throat pain , and new skin lesions. The rest of the 14 point ROS are unremarkable. PHYSICAL EXAM: GEN APPEARANCE: Awake, not in acute distress, oriented to person only HEENT: NC/AT, PERRLA, moist oral mucosa, (-) throat erythema NECK: Soft, supple, (-) cervical LAD, (-)JVD HEART: S1S2 WNL, RRR, No MRG CHEST: CTA, BL, GAE, No W/R/R ABD: Soft, ND/NT, NABS 4x Q EXT: No C/C/E SKIN: Warm to touch PSYCH: No active psychosis, hallucinations, depression, SI/HI Family History: Findings - Father; alcoholic, Mother; unknown Social History: Findings - Homemaker, , 3 children, daughter Ya at [phone] is HCP, non-smoker, no alcohol or drug use Past Medical History: Findings - PMH: OA, h/o DVT, h/o [place] Fever , hypothyroid, lumbar spondylosis, depression, h/o rhabdomyolysis, DM2, HTN, dementia; PSH: intussuception, RT TKR, Objective Active Medications: Acetaminophen (Tylenol Tab*) 650 mg PO Q6H PRN PRN Reason: PAIN Last Admin: 05/21/18 01:45 Dose: 650 mg Atorvastatin Calcium (Lipitor*) 40 mg PO DAILY [facility] Last Admin: 05/23/18 09:18 Dose: 40 mg Citalopram Hydrobromide (Celexa Tab*) 20 mg PO DAILY [facility] Last Admin: 05/23/18 09:18 Dose: 20 mg Dextrose (D50w Syringe 50 Ml*) 12.5 gm IV PUSH .FOR FS < 60 - SS PRN PRN Reason: FS < 60 Pantoprazole Sodium (Protonix Iv Bag*) 80 mg in 250 mls @ 25 mls/hr IVPB Q10H [facility] Last Admin: 05/23/18 16:40 Dose: 25 mls/hr Insulin Human Lispro (Humalog*) 0 units SUBCUT ACHS [facility]; Protocol Last Admin: 05/23/18 15:52 Dose: 1 unit Levothyroxine Sodium (Synthroid Tab*) 100 mcg PO DAILY@0600 [facility] Last Admin: 05/23/18 05:43 Dose: 100 mcg Vital Signs - 8 hr 05/23/18 05/23/18 11:40 15:23 Temperature 97.8 F 98.3 F Pulse Rate 78 79 Respiratory 18 16 Rate Blood Pressure 115/50 104/47 (mmHg) O2 Sat by Pulse 98 100 Oximetry Oxygen Devices in Use Now: None Result Diagrams: 05/23/18 05:25 05/23/18 05:25 Additional Lab and Data: Laboratory Tests Microbiology and Other Data: Microbiology 05/20/18 04:20 Nasal Screen MRSA (PCR) - Final Nasal Mrsa Not Detected Diagnostic Imaging: Abdo/Pelvis CT at [place] negative EKG Data: NSR, inferior Q waves, III, aVF, possible old IMI Assess/Plan/Problems-Billing Assessment: 78 year old woman with a PMH for dementia, HF, History of DVT, who presents with melena and anemia likely from an upper GI bleed. - Patient Problems (1) GI bleed Current Visit: Yes Status: Acute Code(s): K92.2 - GASTROINTESTINAL HEMORRHAGE, UNSPECIFIED SNOMED Code(s): 33327674 Comment: -Given unknown source of GIB, w/c is likely intermittent, possibly AVM of small bowel along w/pts comorbidities, will transfuse 1 unit of PRBC tonight and will continue to follow - EGD and Colonoscopy negative with active bleeding. Likeyl small bowel source. - BP now normotensive, non-symptomatic. Continue to monitor closely in ICU, may need to be transferred for enteroscopy if H/H deteriorates. - Continue IV protonix gtt; and if H&H remains stable, consiver IV BID - Appreciate GI consult. (2) Heart failure Current Visit: Yes Status: Acute Code(s): I50.9 - HEART FAILURE, UNSPECIFIED SNOMED Code(s): 29067346 Comment: -Likely iatrogenic from fluid resucitation -Appears euvolemic at this time, however, will give low dose IV Lasix post 1 unit transfusion today - Monitor respiratory status with fluids and possible transfusions. - Judicious use of fluids. (3) Dementia Current Visit: Yes Status: Acute Code(s): F03.90 - UNSPECIFIED DEMENTIA WITHOUT BEHAVIORAL DISTURBANCE SNOMED Code(s): 83142433 Comment: - Supportive care (4) Hypertension Current Visit: Yes Status: Acute Priority: Medium Code(s): I10 - ESSENTIAL (PRIMARY) HYPERTENSION SNOMED Code(s): 86236732 Comment: - BP Normotensive - Continue to hold oral antihypertensives (5) Type 2 diabetes mellitus Current Visit: Yes Status: Acute Priority: Medium Comment: -Well-controlled - FSBG ACHS - Low dose SSI - Hold Oral Antihyperglycemics. (6) DVT prophylaxis Current Visit: Yes Status: Acute Priority: Low Code(s): ILM5717 - SNOMED Code(s): 201152320 Comment: -SCDs setting in setting of GI bleed. - History of DVT, unknown if provoked. Status and Disposition: -For possible D/C back to [facility] in two days -For PT eval
[2018-05-23] MEDS: Acetaminophen TAB* 325 MG PO PRN (20:53)
[2018-05-24] MEDS: Pantoprazole* 80 mg IN NS 80 MG/250 ML BAG IVPB SCH ×2 (01:40→13:11)
[2018-05-24] MEDS: Levothyroxine TAB* 100 MCG TAB PO SCH (05:48)
[2018-05-24 06:11] LABS: ABS Basophils 0.1 10^3/ul (0-0.2); ABS Eosinophils 0.1 10^3/ul (0-0.6); ABS Monocytes 0.4 10^3/ul (0-0.8); ABS Nucleated RBC 0 10^3/ul; Eosinophil % 2.2 %; Hematocrit 24 % (35-47); Hemoglobin 8.2 g/dl (12.0-16.0); Lymphocyte % 29.9 %; Mean Corpuscular HGB Conc 34 g/dl (31-36); Mean Corpuscular Hemoglobin 31 pg (27-31); Mean Corpuscular Volume 90 fL (80-97); Mean Platelet Volume 6.8 fL (7.4-10.4); Nucleated Red Blood Cells % 0.2; Platelet Count 216 10^3/ul (150-450); Red Blood Count 2.69 10^6/ul (4.00-5.40); Red Cell Distribution Width 16 % (10.5-15); White Blood Count 6.7 10^3/ul (3.5-10.8)
[2018-05-24 06:27] LABS: BUN/Creatinine Ratio 8.2 (8-20); Calcium 8.2 mg/dL (8.6-10.3); EGFR African American 78.3 (>60); EGFR Non-African American 64.7 (>60); Potassium 3.4 mmol/L (3.5-5.0)
[2018-05-24] MEDS: Insulin LISPRO* 1 UNITS UNIT SUBCUT SCH ×4 (06:49→20:49)
[2018-05-24] MEDS ORDERED: Potassium Chlor TAB* 20 MEQ TAB.ER PO ONE (09:49)
[2018-05-24] MEDS: Citalopram TAB* 20 MG PO SCH (10:04)
[2018-05-24] MEDS: Atorvastatin* 40 MG TAB PO SCH (10:04)
--- NOTE | 2018-05-24 19:30 | PN ---
Subjective Date of Service: 05/24/18 Interval History: Pt seen and examined. Meds and labs reviewed. Had BRBPR with dark brown stools this AM. Spoke w/pts daughter and Dr. Shukla. Please see discussion below. CC: N/A ROS: Denied DUKE/dizziness, F/C, N/V, CP, SOB, increased cough, sputum production , abd pain, diarrhea, constipation, dysuria, myalgias, arthralgias, throat pain , and new skin lesions. The rest of the 14 point ROS are unremarkable. PHYSICAL EXAM: GEN APPEARANCE: Awake, not in acute distress, oriented to person only HEENT: NC/AT, PERRLA, moist oral mucosa, (-) throat erythema NECK: Soft, supple, (-) cervical LAD, (-)JVD HEART: S1S2 WNL, RRR, No MRG CHEST: CTA, BL, GAE, No W/R/R ABD: Soft, ND/NT, NABS 4x Q EXT: No C/C/E SKIN: Warm to touch PSYCH: No active psychosis, hallucinations, depression, SI/HI Family History: Findings - Father; alcoholic, Mother; unknown Social History: Findings - Homemaker, , 3 children, daughter Ya at [phone] is HCP, non-smoker, no alcohol or drug use Past Medical History: Findings - PMH: OA, h/o DVT, h/o [place] Fever , hypothyroid, lumbar spondylosis, depression, h/o rhabdomyolysis, DM2, HTN, dementia; PSH: intussuception, RT TKR, Objective Active Medications: Acetaminophen (Tylenol Tab*) 650 mg PO Q6H PRN PRN Reason: PAIN Last Admin: 05/23/18 20:53 Dose: 650 mg Atorvastatin Calcium (Lipitor*) 40 mg PO DAILY [facility] Last Admin: 05/24/18 10:04 Dose: 40 mg Citalopram Hydrobromide (Celexa Tab*) 20 mg PO DAILY [facility] Last Admin: 05/24/18 10:04 Dose: 20 mg Dextrose (D50w Syringe 50 Ml*) 12.5 gm IV PUSH .FOR FS < 60 - SS PRN PRN Reason: FS < 60 Pantoprazole Sodium (Protonix Iv Bag*) 80 mg in 250 mls @ 25 mls/hr IVPB Q10H [facility] Last Admin: 05/24/18 13:11 Dose: 25 mls/hr Insulin Human Lispro (Humalog*) 0 units SUBCUT ACHS [facility]; Protocol Last Admin: 05/24/18 17:53 Dose: 1 unit Levothyroxine Sodium (Synthroid Tab*) 100 mcg PO DAILY@0600 [facility] Last Admin: 05/24/18 05:48 Dose: 100 mcg Vital Signs - 8 hr 05/24/18 15:25 Temperature 97.2 F Pulse Rate 93 Respiratory 16 Rate Blood Pressure 127/67 (mmHg) O2 Sat by Pulse 99 Oximetry Oxygen Devices in Use Now: None Result Diagrams: 05/24/18 05:59 05/24/18 05:58 Additional Lab and Data: Laboratory Tests Microbiology and Other Data: Microbiology 05/20/18 04:20 Nasal Screen MRSA (PCR) - Final Nasal Mrsa Not Detected Diagnostic Imaging: Abdo/Pelvis CT at [place] negative EKG Data: NSR, inferior Q waves, III, aVF, possible old IMI Assess/Plan/Problems-Billing Assessment: 78 year old woman with a PMH for dementia, HF, History of DVT, who presents with melena and anemia likely from an upper GI bleed. 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 Salinas if pt to be transferred since she re-bled as was the original recommendation by Dr. Bragg; per Dr. Shukla, keep pt and monitor H&H and transfuse PRN - EGD and Colonoscopy negative with active bleeding. Likeyl small bowel source. - BP now normotensive, non-symptomatic. Continue to monitor closely in ICU, may need to be transferred for enteroscopy if H/H deteriorates. - Continue IV protonix gtt; and if H&H remains stable, consiver IV BID - Will await further input from Dr. Shukla (2) Heart failure Current Visit: Yes Status: Acute Code(s): I50.9 - HEART FAILURE, UNSPECIFIED SNOMED Code(s): 06409752 Comment: -Likely iatrogenic from fluid resuscitation; resolved - Monitor respiratory status with fluids and possible transfusions. - Judicious use of fluids. -2D echo pending (3) Dementia Current Visit: Yes Status: Acute Code(s): F03.90 - UNSPECIFIED DEMENTIA WITHOUT BEHAVIORAL DISTURBANCE SNOMED Code(s): 11186823 Comment: - Supportive care (4) Hypertension Current Visit: Yes Status: Acute Priority: Medium Code(s): I10 - ESSENTIAL (PRIMARY) HYPERTENSION SNOMED Code(s): 39072452 Comment: - BP Normotensive - Continue to hold oral antihypertensives (5) Type 2 diabetes mellitus Current Visit: Yes Status: Acute Priority: Medium Comment: -Well-controlled - FSBG ACHS - Low dose SSI - Hold Oral Antihyperglycemics. (6) DVT prophylaxis Current Visit: Yes Status: Acute Priority: Low Code(s): ATN2945 - SNOMED Code(s): 463044469 Comment: -SCDs setting in setting of GI bleed. - History of DVT, unknown if provoked. Status and Disposition: -Awaiting Dr. Méndez re-eval -For PT eval -Awaiting 2D echo
[2018-05-24 21:06] LABS: ABS Basophils 0 10^3/ul (0-0.2); ABS Eosinophils 0.1 10^3/ul (0-0.6); ABS Lymphocytes 2.1 10^3/ul (1.0-4.8); ABS Monocytes 0.5 10^3/ul (0-0.8); ABS Neutrophils 6.2 10^3/ul (1.5-7.7); ABS Nucleated RBC 0 10^3/ul; Eosinophil % 1.4 %; Hematocrit 23 % (35-47); Hemoglobin 7.6 g/dl (12.0-16.0); Lymphocyte % 23.4 %; Mean Corpuscular HGB Conc 34 g/dl (31-36); Mean Corpuscular Hemoglobin 31 pg (27-31); Mean Corpuscular Volume 92 fL (80-97); Mean Platelet Volume 6.8 fL (7.4-10.4); Nucleated Red Blood Cells % 0.3; Platelet Count 233 10^3/ul (150-450); Red Blood Count 2.46 10^6/ul (4.00-5.40); Red Cell Distribution Width 15 % (10.5-15); White Blood Count 8.9 10^3/ul (3.5-10.8)
[2018-05-25] MEDS: Pantoprazole* 80 mg IN NS 80 MG/250 ML BAG IVPB SCH ×3 (02:37→18:35)
[2018-05-25] MEDS: Levothyroxine TAB* 100 MCG TAB PO SCH (05:38)
[2018-05-25 07:08] LABS: Hematocrit 21 % (35-47); Hemoglobin 6.9 g/dl (12.0-16.0); Mean Corpuscular HGB Conc 33 g/dl (31-36); Mean Corpuscular Hemoglobin 30 pg (27-31); Mean Corpuscular Volume 91 fL (80-97); Mean Platelet Volume 6.8 fL (7.4-10.4); Platelet Count 218 10^3/ul (150-450); Red Cell Distribution Width 16 % (10.5-15); White Blood Count 7.1 10^3/ul (3.5-10.8)
[2018-05-25 07:27] LABS: BUN/Creatinine Ratio 11.9 (8-20); Calcium 8.2 mg/dL (8.6-10.3); EGFR African American 79.3 (>60); EGFR Non-African American 65.6 (>60); Magnesium 1.9 mg/dL (1.9-2.7); Phosphorus 2.4 mg/dL (2.5-5.0); Potassium 3.6 mmol/L (3.5-5.0)
[2018-05-25] MEDS ORDERED: Perflutren Lipid Microsphere* 3 ML VIAL ONE (10:29)
[2018-05-25] MEDS ORDERED: Calcium Gluconate INJ* 1 GM in NS 0.9% 50 ML* 50 ML IVPB ONE (10:45)
[2018-05-25] MEDS ORDERED: Potassium Phosphate IV* 15 MMOLE in NS 0.9% 250 ML* 250 ML IVPB ONE (10:45)
[2018-05-25] MEDS: Insulin LISPRO* 1 UNITS UNIT SUBCUT SCH ×4 (10:57→22:02)
[2018-05-25] MEDS: Atorvastatin* 40 MG TAB PO SCH (11:22)
[2018-05-25] MEDS: Citalopram TAB* 20 MG PO SCH (11:22)
--- NOTE | 2018-05-25 13:14 | ECHO ---
Patient: KALYAN OMER [facility] Rec#: [id number] : 1940 Date: 05/25/2018 Age: 78y Height: 165 cm / 65.0 in Weight: 110.1 kg / 242.7 lbs Sex: F BSA: 2.2 Room#: [facility] Admit Date#: 05/20/2018 Type: Inpatient Referring: Dre Garnica Reading: Jose uLis Karimi DO [employer] Filler [employer] Drainer: Kenyatta Edmond RN RDCS CC: Andrew Braxton MD Transthoracic Echocardiogram Indication: CHF BP: 119/73 HR: 79 Rhythm: NSR Findings History: HTN, DM, DVT, dementia, GI bleed, obesity Technical Comments: The study is technically limited due to patient body habitus. Completed at 1120. Left Ventricle: The left ventricular chamber size is normal. Mild concentric left ventricular hypertrophy is observed. Global left ventricular wall motion and contractility are within normal limits. There is normal left ventricular systolic function. The estimated ejection fraction is 60-65%. There is no consistent Doppler evidence of clinically significant diastolic dysfunction. Left Atrium: The left atrial chamber size is normal. Right Ventricle: The right ventricular chamber size and systolic function are within normal limits. Right Atrium: The right atrial cavity size is normal. Aortic Valve: The aortic valve is trileaflet. There is mild thickening of the non coronary cusp. Mild aortic leaflet calcification is visualized. There is no evidence of aortic regurgitation. There is no evidence of aortic stenosis. Mitral Valve: Mild mitral annular calcification present. The mitral valve leaflets are mildly thickened. There is a trace of mitral regurgitation. There is no evidence of mitral stenosis. Tricuspid Valve: The tricuspid valve structure is not well visualized. There is trace tricuspid regurgitation. Unable to estimate the right ventricular systolic pressure. There is no tricuspid stenosis. Pulmonic Valve: The pulmonic valve structure is not well visualized. There is a trace pulmonic regurgitation. There is no pulmonic stenosis. Pericardium: There is no significant pericardial effusion. Aorta: There is no dilatation of the ascending aorta. The aortic arch is not well visualized. There is no dilation of the aortic root. Pulmonary Artery: The main pulmonary artery is not well visualized. Venous: The inferior vena cava is dilated. There is a greater than 50% respiratory change in the inferior vena cava dimension. Contrast: Definity was used to optimize study. A total of 2 ml of diluted Definity was given IV. Conclusions The left ventricular chamber size is normal. Mild concentric left ventricular hypertrophy is observed. Global left ventricular wall motion and contractility are within normal limits. There is normal left ventricular systolic function. The estimated ejection fraction is 60-65%. The left atrial chamber size is normal. The right ventricular chamber size and systolic function are within normal limits. No significant valvular abnormalities noted Unable to estimate the right ventricular systolic pressure. Definity was used to optimize study. None prior for comparison at time of interpretation Measurements Name Value Normal Range RVIDd (AP) 2D 3.4 cm (0.9 - 2.6) RVDdMajor (2D) 2.6 cm (2.2 - 4.4) RAd ISD 4CH 4.9 cm (3.4 - 4.9) RA (A4C)W 3.7 cm (2.9 - 4.6) IVSd (2D) 1.2 cm (0.6 - 1) LVPWd (2D) 1.2 cm (0.6 - 1) LVIDd (2D) 4.2 cm (3.6 - 5.4) LVIDs (2D) 3.2 cm - LV FS (2D) 24 % (25 - 45) Aortic Annulus 2.2 cm (1.4 - 2.6) Ao root diameter (2D) 3.4 cm (2.1 - 3.5) Ascending Ao 3.1 cm (2.1 - 3.4) LA dimension (AP) 2D 3.7 cm (2.3 - 3.8) LAd ISD 4CH 4.9 cm (2.9 - 5.3) LA ISD 4CH W 4.5 cm (2.5 - 4.5) Name Value Normal Range LA ESV BP (A/L) index 27.8 ml/m2 - Name Value Normal Range MV E-wave Vmax 0.89 m/sec - MV deceleration time 380 msec - MV A-wave Vmax 1.3 m/sec - MV E:A ratio 0.7 ratio - LV septal e' Vmax 0.07 m/sec - LV lateral e' Vmax 0.07 m/sec - LV E:e' septal ratio 12.7 ratio - LV E:e' lateral ratio 12.7 ratio - Name Value Normal Range AV Vmax 1.3 m/sec - AV VTI 27.8 cm - AV peak gradient 7 mmHg - AV mean gradient 4 mmHg - LVOT Vmax 1.2 m/sec - LVOT VTI 28.4 cm - LVOT peak gradient 6 mmHg - LVOT mean gradient 3 mmHg - Name Value Normal Range IVC diameter 2.5 cm - Name Value Normal Range PV Vmax 0.84 m/sec -
--- NOTE | 2018-05-25 16:43 | TRS ---
CC: Dr. Rakesh Chan; Dr. Elmo Morgan; Dr. Esvin Mckenna; Dr. Andrew Braxton * DATE OF ADMISSION: 05/20/2018. DATE OF TRANSFER: 05/25/2018. TRANSFER CONDITION: Stable. DISPOSITION: Transfer to higher level of care. Transfer to [facility] under the care of Dr. Tavarez. TRANSFER DIAGNOSES: 1. GI bleed, likely small bowel source, EGD and colonoscopy shows no source of active bleed. 2. Diastolic CHF exacerbation, improved. 3. Dementia, history of. 4. Hypertension, history of. 5. Diabetes, history of. TRANSFER MEDICATIONS: Recommended transfer medications are as follows, to be continued and re-evaluated by [facility] team: 1. Atorvastatin 40 mg p.o. daily. 2. Citalopram 20 mg p.o. daily. 3. Insulin Lispro sliding scale. 4. Levothyroxine Sodium 100 mcg p.o. daily. Her full list of medications on discharge will be deferred to [facility] on their discharge. HISTORY OF PRESENT ILLNESS/HOSPITAL COURSE: The patient is a 78-year-old lady with a history of hypothyroidism, depression, and diabetes who is a resident of [place] and was brought to [facility] a few hours prior to her admission to [facility]. She had a CT of the abdomen and pelvis which did not reveal any significant findings for abdominal pain. She was then discharged back to [facility]; however, later during that day, she was returned to the ER due to complaints of melena and maroon-colored stools. Her hematocrit was found to be 31 percent and was found to be FOBT positive. She was admitted and seen by Gastroenterology Service and eventually had both an EGD and colonoscopy done on 05/21/[address] Bragg who mentioned that there was no fresh blood nor old blood seen in the upper endoscopy as well as the colonoscopy, although she does have some mild diverticulosis seen on colonoscopy. This was not bleeding at that time. It is thought that her source of bleeding is likely small bowel; hence, she was observed during the weekend and has had a relatively H and H until the day prior to her transfer where it was noted that her H and H has significantly trended down. GI re- evaluated the patient who mentioned to continue to observe the patient; however , the morning prior to her transfer, she had two bouts of bright red blood stools with maroon-colored stools with no brown coloration of her stools. GI was reconsulted who suggested transfer of patient due to need for enteroscopy which we cannot unfortunately provide at this time at our institution. The patient's daughter, Ya, was informed of the above and agrees with the above assessment and plan. The patient had been informed that she will be transferred to [facility] for enteroscopy to further evaluate her GI bleed likely from her small bowel source. I did explain to her that her aspirin will be held and any form of anticoagulation will be held until she is re-evaluated at [facility]. She was advised to call my office regarding any questions, concerns, or further clarifications regarding her transfer plans and prescriptions. She was asked to take her medications as prescribed. REVIEW OF SYSTEMS: She denied any recent headaches, dizziness, fevers, chills, nausea, vomiting, chest pain, shortness of breath, increased cough or sputum production, abdominal pain, diarrhea, constipation, pain and/or increased frequency on urination, myalgias, arthralgias, throat pain, or new skin lesions. The rest of the 14 point review of systems are otherwise unremarkable. PHYSICAL EXAMINATION: General appearance: The patient is awake, not oriented times three, although appropriate and answers questions appropriately. She has poor memory given her dementia. Most recent vital signs of record: Blood pressure 109/54, 97.8 degrees Fahrenheit, 73 beats per minute heart rate, 20 per minute respiratory rate, saturating at 98 percent at room air. HEENT: Normocephalic, atraumatic. PERRLA. Extraocular muscles intact. Negative for icterus. Moist oral mucosal. Negative throat erythema. Neck: Soft, supple with no cervical lymphadenopathy. No JVD. Heart: S1, S2 within normal limits. Regular rate and rhythm. No murmurs, rubs, or gallops. Chest: Clear to auscultation bilaterally. Good air entry. No wheezes, rales or rhonchi. Abdomen: Soft, nondistended, nontender. Normoactive bowel sounds times four. Extremities: No cyanosis, clubbing, or edema. Psychiatric: No active psychosis, depression, suicidal or homicidal ideation. Skin: Warm to touch. TIME SPENT: Total time spent evaluating the patient, reviewing the pertinent data and appropriate documentation is one hour. [id number]/[facility] #: [id number] MTDD
[2018-05-26] MEDS: Pantoprazole* 80 mg IN NS 80 MG/250 ML BAG IVPB SCH ×2 (03:56→13:35)
[2018-05-26] MEDS: Levothyroxine TAB* 100 MCG TAB PO SCH (05:35)
[2018-05-26 07:49] LABS: Hematocrit 24 % (35-47)
[2018-05-26] MEDS: Insulin LISPRO* 1 UNITS UNIT SUBCUT SCH ×2 (08:08→12:30)
[2018-05-26] MEDS: Citalopram TAB* 20 MG PO SCH (08:23)
[2018-05-26] MEDS: Atorvastatin* 40 MG TAB PO SCH (08:23)
[2018-05-26 11:30] VITALS: BP 104/51
--- NOTE | 2018-05-26 12:22 | TRS ---
CC: Dr. Rakesh Chan; Dr. Elmo Morgan; Dr. Esvin Mckenna; Dr. Andrew Braxton; Dr. Tavarez, [facility] ADDENDUM TO TRANSFER SUMMARY DATE OF ADMISSION: 05/20/2018. DATE OF TRANSFER: 05/26/2018. HISTORY OF PRESENT ILLNESS/HOSPITAL COURSE: The patient was kept overnight while awaiting bed at [facility]. There were no overnight issues reported by nursing staff and the patient appears to be c linically stable and without any changes in her physical examination from the one documented the day previous. At this time, with a bed availability at [facility], we will proceed with transfer. I discussed with Dr. Shukla prior to transfer. [facility]; however, we will cancel this if this has not been started. We will pass along the information to [facility] if it has been completed. TIME SPENT: Total time spent evaluating the patient, reviewing pertinent data and appropriate docume ntation is 40 minutes. [id number]/[facility] #: [id number]
== END 2018-05-26 14:00 | disposition short-term general hospital (02) | DRG 377 ==
LOC: ED 22:35 → MEDTELE 05-20 01:48 → MED 05-24 19:49
PROVIDERS: ADMIT Internal Medicine; ATTEND Student in an Organized Health Care Education/Training Program
PROC: 30233N1 Transfusion of Nonautologous Red Blood Cells into Peripheral Vein, Percutaneous Approach (ICD-10-PCS; principal; 2018-05-21)
PROC: 0DD68ZX Extraction of Stomach, Via Natural or Artificial Opening Endoscopic, Diagnostic (ICD-10-PCS; 2018-05-21)
PROC: 0DJD8ZZ Inspection of Lower Intestinal Tract, Via Natural or Artificial Opening Endoscopic (ICD-10-PCS; 2018-05-21)
DX: K92.1 Melena (principal); I50.31 Acute diastolic (congestive) heart failure; D62 Acute posthemorrhagic anemia; I11.0 Hypertensive heart disease with heart failure; F03.90 Unspecified dementia, unspecified severity, without behavioral disturbance, psychotic disturbance, mood disturbance, and anxiety; E11.9 Type 2 diabetes mellitus without complications; E03.9 Hypothyroidism, unspecified; Z66 Do not resuscitate; F32.9 Major depressive disorder, single episode, unspecified; K44.9 Diaphragmatic hernia without obstruction or gangrene; K62.1 Rectal polyp; K57.30 Diverticulosis of large intestine without perforation or abscess without bleeding; M19.90 Unspecified osteoarthritis, unspecified site; M47.896 Other spondylosis, lumbar region; Z81.1 Family history of alcohol abuse and dependence; Z79.84 Long term (current) use of oral hypoglycemic drugs; Z79.82 Long term (current) use of aspirin; Z79.899 Other long term (current) drug therapy
CPT/HCPCS: 36415; 80048; 80053; 82330; 83735; 84100; 85014; 85018; 85025; 85027; 85610; 85730; 86850; 86870; 86880; 86900; 86901; 86922; 87641; 93005; 93306; 99156; 99157; 99284; A9270-GY; C8929; G8978-GP-CI; G8979-GP-CI; G8980-GP-CI; J0610; J1940; J2250; J3010; J3475; P9040

== ENCOUNTER 2024-03-13 20:57 | Inpatient (IN) ==
[2024-03-13] MEDS ORDERED: Senna TAB 8.6 mg TAB PO PRN (23:46)
[2024-03-13] MEDS ORDERED: Polyethylene Glycol 3350 17 GM PACKET PO PRN (23:46)
[2024-03-14 00:13] LABS: ABS Basophils 0.1 10^3/uL (0.0-0.1); ABS Lymphocytes 1.9 10^3/uL (1.0-4.8); ABS Monocytes 0.9 10^3/uL (0.0-0.9); ABS Neutrophils 15.7 10^3/uL (1.5-7.6); ABS Nucleated RBC 0.01 10^3/ul; Eosinophil % 0.2 %; Hemoglobin 10.9 g/dL (11.5-14.3); Mean Corpuscular Hemoglobin 28.3 pg (27-33); Mean Corpuscular Volume 85.8 fL (80-97); Mean Platelet Volume 6.7 fL (7.5-11.2); Platelet Count 374 10^3/uL (150-450); Red Blood Count 3.85 10^6/uL (3.63-4.92); Red Cell Distribution Width 15.6 % (12-17); White Blood Count 18.6 10^3/uL (3.8-11.8)
[2024-03-14] MEDS ORDERED: Dextrose 50% Syringe 50 ml 25 GM/50 ML SYRINGE IV PUSH PRN (00:24)
[2024-03-14 00:29] LABS: INR 1.1 (0.85-1.14)
[2024-03-14 00:43] LABS: Albumin 3.7 g/dL (3.2-5.2); Albumin/Globulin Ratio 1.3 (1-3); Calcium 9.3 mg/dL (8.6-10.3); Creatinine, Serum 0.8 mg/dL (0.51-0.95); Globulin 2.9 g/dL (2-4); Potassium 4.6 mmol/L (3.5-5.0); Total Bilirubin 0.3 mg/dL (0.2-1.0); Total Protein 6.6 g/dL (6.4-8.9); eGFR CKD-EPI 72.6 (>60)
[2024-03-14] MEDS: Enoxaparin 40 MG/0.4 ML SYR SUBCUT ONE (01:27)
[2024-03-14] MEDS: Lactated Ringers 1000 ml BAG 1,000 ML IV SCH ×2 (04:07→17:05)
[2024-03-14 05:15] LABS: Urine Appearance Clear; Urine Bilirubin Negative (Negative); Urine Blood Trace (Negative); Urine Color Yellow; Urine Glucose Negative (Negative); Urine Ketones Negative (Negative); Urine Nitrite Negative (Negative); Urine Protein Trace (Negative); Urine Specific Gravity 1.023 (1.002-1.030); Urine Urobilinogen Negative (Negative); Urine pH 6.5 (5.0-8.0)
[2024-03-14 05:41] LABS: Urine Bacteria Absent /HPF (Absent); Urine Red Blood Cell 2+(6-10/hpf) /HPF (0-Trace); Urine Squamous Epithelial Cell Present /HPF (Absent); Urine White Blood Cell 3+(>20/hpf) /HPF (0-Trace)
[2024-03-14] MEDS ORDERED: Naloxone 0.4 mg VIAL 0.4 mg/ml 1 ml VIAL IV PRN (09:47)
[2024-03-14] MEDS ORDERED: Metoclopramide 5 MG/ML VIAL (10 mg) IV PRN (09:47)
[2024-03-14] MEDS ORDERED: Ondansetron 4 mg VIAL 2 MG/ML 2 ml VIAL IV PRN (09:47)
[2024-03-14] MEDS ORDERED: NS 0.45% 1000 ml BAG 1,000 ML IV SCH (10:00)
[2024-03-14] MEDS ORDERED: ceFAZolin 2 GM PREMIX 2 GM/50 ML BAG ONE (10:13)
[2024-03-14] MEDS ORDERED: ROPIVACAINE 5 MG/ML 30 ML BTL (0.5%) ONE (10:16)
[2024-03-14] MEDS ORDERED: fentaNYL 100 mcg/2 ml 50 MCG/ML VIAL ONE ×3 (10:21→13:33)
[2024-03-14] MEDS ORDERED: Rocuronium 50 mg VIAL 10 mg/ml 5 ml VIAL (50 mg) ONE (10:55)
[2024-03-14] MEDS ORDERED: Ondansetron 4 mg VIAL 2 MG/ML 2 ml VIAL ONE (12:34)
[2024-03-14] MEDS ORDERED: Succinylcholine 200 mg VIAL 20 mg/ml 10 ml VIAL (200 mg) ONE (12:34)
[2024-03-14] MEDS ORDERED: Phenylephrine 40 mcg/mL 10mL (400mcg) SYRINGE ONE (12:41)
[2024-03-14] MEDS: fentaNYL 100 mcg/2 ml 50 MCG/ML VIAL IV PRN (13:34)
[2024-03-14] MEDS ORDERED: Polyethylene Glycol 3350 17 GM PACKET PO PRN (14:27)
[2024-03-14] MEDS ORDERED: Senna TAB 8.6 mg TAB PO PRN (14:27)
[2024-03-14] MEDS ORDERED: Magnesium Hydroxide LIQ 30 ML UDC PO PRN (14:27)
[2024-03-14 14:36] LABS: Hematocrit 33.8 % (35-45); Hemoglobin 10.7 g/dL (11.5-14.3)
[2024-03-14] MEDS: Acetaminophen IV 1 GM/100ML 1,000 MG/100 ML BAG IV ONE (17:04)
[2024-03-14] MEDS: Scopolamine 1 mg/72hr PATCH TRANSDERM ONE (17:05)
[2024-03-14] MEDS: Buffered Lidocaine 1% SYRIN 1 ml INTRADERM ONE (17:05)
[2024-03-14] MEDS: ceFAZolin 1 GM ADVAN 1 GM in NS 0.9% 50 ML 50 ML IVPB SCH (18:49)
[2024-03-14] MEDS: Lactated Ringers 1000 ml BAG 1,000 ML IV ONE (20:40)
[2024-03-14] MEDS: Senna TAB 8.6 mg TAB PO SCH (20:49)
[2024-03-14] MEDS: Magnesium Hydroxide LIQ 30 ML UDC PO SCH (20:49)
[2024-03-15 05:30] LABS: ABS Basophils 0.1 10^3/uL (0.0-0.1); ABS Lymphocytes 1.7 10^3/uL (1.0-4.8); ABS Monocytes 1.2 10^3/uL (0.0-0.9); ABS Neutrophils 8.2 10^3/uL (1.5-7.6); ABS Nucleated RBC 0.01 10^3/ul; Eosinophil % 0.1 %; Hemoglobin 8.8 g/dL (11.5-14.3); Lymphocyte % 15.2 %; Mean Corpuscular Hemoglobin 28.4 pg (27-33); Mean Corpuscular Hgb Conc 30.4 g/dL (31-36); Mean Corpuscular Volume 93.3 fL (80-97); Nucleated Red Blood Cells % 0.1 %/100WBC (0.0-0.8); Platelet Count 322 10^3/uL (150-450); Red Blood Count 3.11 10^6/uL (3.63-4.92); Red Cell Distribution Width 16.4 % (12-17); White Blood Count 11.2 10^3/uL (3.8-11.8)
[2024-03-15 06:11] LABS: Calcium 8.4 mg/dL (8.6-10.3); Creatinine, Serum 0.97 mg/dL (0.51-0.95); Magnesium 1.8 mg/dL (1.9-2.7); Phosphorus 3.2 mg/dL (2.5-5.0); Potassium 4.4 mmol/L (3.5-5.0); eGFR CKD-EPI 57.6 (>60)
[2024-03-15] MEDS: Magnesium Sulfate 2 gm BAG 2 GM/50 ML BAG IVPB ONE (08:58)
[2024-03-15] MEDS: Enoxaparin 40 MG/0.4 ML SYR SUBCUT SCH (10:55)
[2024-03-16 05:39] LABS: ABS Basophils 0.1 10^3/uL (0.0-0.1); ABS Eosinophils 0.1 10^3/uL (0.0-0.5); ABS Lymphocytes 2.1 10^3/uL (1.0-4.8); ABS Monocytes 0.9 10^3/uL (0.0-0.9); ABS Neutrophils 8.3 10^3/uL (1.5-7.6); ABS Nucleated RBC 0.01 10^3/ul; Eosinophil % 0.6 %; Hematocrit 23.1 % (35-45); Hemoglobin 7.7 g/dL (11.5-14.3); Lymphocyte % 18.1 %; Mean Corpuscular Hemoglobin 28.6 pg (27-33); Mean Corpuscular Hgb Conc 33.2 g/dL (31-36); Mean Corpuscular Volume 86.1 fL (80-97); Mean Platelet Volume 6.9 fL (7.5-11.2); Nucleated Red Blood Cells % 0.1 %/100WBC (0.0-0.8); Platelet Count 303 10^3/uL (150-450); Red Blood Count 2.68 10^6/uL (3.63-4.92); Red Cell Distribution Width 15.5 % (12-17); White Blood Count 11.6 10^3/uL (3.8-11.8)
[2024-03-16 06:29] LABS: Calcium 8.7 mg/dL (8.6-10.3); Creatinine, Serum 0.83 mg/dL (0.51-0.95); Magnesium 2.3 mg/dL (1.9-2.7); Potassium 4.1 mmol/L (3.5-5.0); eGFR CKD-EPI 69.5 (>60)
[2024-03-17 05:57] LABS: ABS Basophils 0.1 10^3/uL (0.0-0.1); ABS Eosinophils 0.1 10^3/uL (0.0-0.5); ABS Monocytes 0.7 10^3/uL (0.0-0.9); ABS Neutrophils 6.6 10^3/uL (1.5-7.6); Eosinophil % 1.3 %; Hematocrit 22.1 % (35-45); Hemoglobin 7.5 g/dL (11.5-14.3); Lymphocyte % 21.4 %; Mean Corpuscular Hemoglobin 29.1 pg (27-33); Mean Corpuscular Hgb Conc 33.8 g/dL (31-36); Mean Corpuscular Volume 85.9 fL (80-97); Platelet Count 308 10^3/uL (150-450); Red Blood Count 2.57 10^6/uL (3.63-4.92); Red Cell Distribution Width 15.5 % (12-17); White Blood Count 9.5 10^3/uL (3.8-11.8)
[2024-03-17 06:30] LABS: Anion Gap 6 mmol/L (2-16); Blood Urea Nitrogen 14 mg/dL (6-24); CO2 Carbon Dioxide 28 mmol/L (22-32); Calcium 8.2 mg/dL (8.6-10.3); Chloride 102 mmol/L (101-111); Creatinine, Serum 0.73 mg/dL (0.51-0.95); Glucose 128 mg/dL (70-100); Magnesium 2.1 mg/dL (1.9-2.7); Potassium 3.9 mmol/L (3.5-5.0); Sodium 136 mmol/L (135-145)
[2024-03-17 11:34] LABS: % Iron Saturation 8 % (15-55); .Transferrin 179 mg/dL (203-362); Iron < 20 ug/dL (50-212); Total Iron Binding Capacity 251 mcg/dL (250-450); Unsaturated Iron Binding 231 ug/dL
[2024-03-17 11:56] LABS: Ferritin 78.7 ng/mL (11-307)
[2024-03-18 06:25] LABS: Calcium 8.2 mg/dL (8.6-10.3); Creatinine, Serum 0.64 mg/dL (0.51-0.95); eGFR CKD-EPI 87.1 (>60)
[2024-03-18 07:21] LABS: Rapid COVID-19 Molecular Undetected (Undetected)
[2024-03-18 07:38] LABS: ABS Basophils 0.1 10^3/uL (0.0-0.1); ABS Eosinophils 0.3 10^3/uL (0.0-0.5); ABS Lymphocytes 2.8 10^3/uL (1.0-4.8); ABS Monocytes 0.6 10^3/uL (0.0-0.9); ABS Neutrophils 5.6 10^3/uL (1.5-7.6); ABS Nucleated RBC 0.04 10^3/ul; Eosinophil % 3.6 %; Hematocrit 22.6 % (35-45); Hemoglobin 7.5 g/dL (11.5-14.3); Lymphocyte % 29.5 %; Mean Corpuscular Hemoglobin 28.6 pg (27-33); Mean Corpuscular Hgb Conc 33.3 g/dL (31-36); Mean Corpuscular Volume 85.9 fL (80-97); Nucleated Red Blood Cells % 0.4 %/100WBC (0.0-0.8); Platelet Count 287 10^3/uL (150-450); Red Blood Count 2.63 10^6/uL (3.63-4.92); Red Cell Distribution Width 15.4 % (12-17); White Blood Count 9.5 10^3/uL (3.8-11.8)
[2024-03-18 10:03] VITALS: BP 115/62
== END 2024-03-18 12:36 | DRG 482 ==
LOC: ED 20:57 → EDHOLD 20:57 → SUATTDRO 21:58 → SSU 03-14 00:23
PROVIDERS: ADMIT Student in an Organized Health Care Education/Training Program; ATTEND Internal Medicine